=== PATIENT | male | born 1955 | race Caucasian/White ===

== ENCOUNTER 2021-11-17 08:20 | Emergency (ER) | payer MEDICARE, BC ==
[~2021-11-17] VITALS: Ht 170.2 cm; Wt 83.9 kg
[2021-11-17] MEDS ORDERED: IBUPROFEN 600 MG TABLET ONE (09:14)
[2021-11-17] MEDS ORDERED: IBUPROFEN 600 MG TABLET PO ONE (09:15)
[2021-11-17] MEDS ORDERED: HYDR-3974 PO (09:16)
[2021-11-17] MEDS ORDERED: IBUP-1955 PO (09:16)
--- NOTE | 2021-11-17 09:21 | NUR ---
Left arm placed in sling, PMS intact. Gave pt RX and d/c instructions, pt verbalized understanding.
== END 2021-11-17 09:46 | disposition home or self-care (01) ==
LOC: ER 08:20
DX: S49.92XA Unspecified injury of left shoulder and upper arm, initial encounter (principal); W01.0XXA Fall on same level from slipping, tripping and stumbling without subsequent striking against object, initial encounter; Y92.89 Other specified places as the place of occurrence of the external cause
CPT/HCPCS: 73030; A4663